=== PATIENT | male | born 1935 | race Caucasian/White ===

== ENCOUNTER → 2022-02-05 | Outpatient (CLI) | payer OTHER ==
--- NOTE | 2022-02-05 13:00 | DIREP ---
PROCEDURE:XRAY SPINE LUMBAR 2-3 VWS COMPARISON:None. INDICATIONS:Z00.00 HISTORY AND PHYSICAL EVALUATION TECHNIQUE:AP, lateral, and coned down lateral views of the lumbar spine are provided. FINDINGS: ALIGNMENT:Mild rightward curvature of the lumbar spine. VERTEBRAE:Prominent endplate osteophytes in the mid lumbar spine. Small osteophytes elsewhere. Severe facet arthropathy mid to lower lumbar spine. Mild anterior wedge fracture at L2 and L1 are age indeterminate. DISK SPACES:Disc space height loss at each level most severe at L3-4, L2-3. SPONDYLOLISTHESIS:L3 retrolisthesis measures 7 mm. L2 retrolisthesis measures 4 mm. SACROILIAC JOINTS:Normal. OTHER:Severe calcified atherosclerosis. Right lower quadrant suture material. Correlate for bowel surgery. CONCLUSION:Rightward curvature of the lumbar spine. 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 Dictated by: Quan Vang M.D. on 02/05/2022 at 11:56 AM Read in [place]
--- NOTE | 2022-02-05 14:50 | DIREP ---
PROCEDURE:XRAY SPINE THORACIC 3 VWS COMPARISON:None. INDICATIONS:Z00.00 HISTORY AND PHYSICAL EVALUATION TECHNIQUE:AP & lateral views of the thoracic spine and a swimmer's view of the cervicothoracic junction are provided. FINDINGS: ALIGNMENT:Normal. VERTEBRAE:No compression fracture is seen. Mild to moderate degenerative changes are seen in the mid and lower thoracic spine. DISK SPACES:Normal. OTHER:Normal. CONCLUSION:Mild to moderate degenerative changes are seen in the mid and lower thoracic spine. No compression deformity is seen. Dictated by: Dank Hyatt M.D. on 02/05/2022 at 02:48 PM
== END | disposition home or self-care (01) ==
LOC: RAD 10:20
PROVIDERS: ATTEND Nurse Practitioner
DX: M47.814 Spondylosis without myelopathy or radiculopathy, thoracic region (principal); M51.37 Other intervertebral disc degeneration, lumbosacral region; M43.8X7 Other specified deforming dorsopathies, lumbosacral region; I70.90 Unspecified atherosclerosis; Z00.00 Encounter for general adult medical examination without abnormal findings
CPT/HCPCS: 72072; 72100